=== PATIENT | female | born 1965 | race Caucasian/White ===

== ENCOUNTER 2019-10-31 07:08 | Outpatient (CLI) | payer BC, OTHER ==
[2019-11-01 11:19] LABS: SARS-CoV-2 MS2 Positive; SARS-CoV-2 N Gene Negative; SARS-CoV-2 S Gene Negative; SARS-CoV-2 orf1ab Negative
== END 2019-10-31 07:09 | disposition home or self-care (01) ==
LOC: LABBT 07:08
PROVIDERS: ATTEND Otolaryngology Plastic Surgery within the Head & Neck
DX: Z01.818 Encounter for other preprocedural examination (principal); Z11.59 Encounter for screening for other viral diseases; J32.9 Chronic sinusitis, unspecified; J30.9 Allergic rhinitis, unspecified; J34.3 Hypertrophy of nasal turbinates; J34.89 Other specified disorders of nose and nasal sinuses; J34.2 Deviated nasal septum; G47.33 Obstructive sleep apnea (adult) (pediatric); E66.9 Obesity, unspecified; R53.83 Other fatigue; R06.83 Snoring; G47.00 Insomnia, unspecified; R51 Headache; J35.3 Hypertrophy of tonsils with hypertrophy of adenoids; K13.79 Other lesions of oral mucosa; Z86.59 Personal history of other mental and behavioral disorders
CPT/HCPCS: 85014; 87635; 93005; 93010; U0003

== ENCOUNTER 2019-11-03 09:14 | Day surgery (SDC) | payer BC, OTHER ==
[2019-10-31 15:28] VITALS: BMI 41.1
[2019-11-03] MEDS ORDERED: AFRIN NASAL MIST 15 ML BOT ONE ×2 (09:27→09:45)
[2019-11-03] MEDS ORDERED: Lidocaine 1% w/Epinephrine 1:100K 20 ML VIAL ONE (09:45)
[2019-11-03] MEDS ORDERED: Ferric Subsulfate (ASTRINGYN) 8 ML VIAL ONE (09:45)
[2019-11-03] MEDS ORDERED: Bacitracin Zinc Ointment 30 gm TUBE ONE (09:45)
[2019-11-03] MEDS ORDERED: Fentanyl 100 MCG/2 ML VIAL ONE ×3 (09:46→14:08)
[2019-11-03] MEDS ORDERED: Midazolam HCl 2 mg/2 ml Vial ONE (09:46)
[2019-11-03] MEDS ORDERED: Glycopyrrolate 0.2 MG/ML 5 ML SYRINGE ONE (10:51)
[2019-11-03] MEDS ORDERED: Rocuronium Bromide 10 MG/ML (10ML VIAL) ONE (10:51)
[2019-11-03] MEDS ORDERED: PROPOFOL 200 MG/20 ML VIAL ONE (10:51)
[2019-11-03] MEDS ORDERED: Lidocaine 1% PF 5 ML VIAL ONE (10:51)
[2019-11-03] MEDS ORDERED: Ondansetron PF 4 MG/2 ML Vial ONE (10:51)
[2019-11-03] MEDS ORDERED: Dexamethasone 20 MG/5 ML VIAL ONE (10:51)
[2019-11-03] MEDS ORDERED: Succinylcholine Chloride 20 MG/ML 10 ml SYRINGE FS ONE (10:51)
[2019-11-03] MEDS ORDERED: Labetalol HCl 100 MG/20 ML VIAL ONE (10:51)
[2019-11-03] MEDS ORDERED: Morphine 2 MG/ML SYRINGE ONE ×3 (14:45→15:11)
[2019-11-03] MEDS ORDERED: Hydrocodone-Acetamin 15 ML UDCUP ONE (15:35)
--- NOTE | 2019-11-04 01:27 | OP ---
DATE OF PROCEDURE: 11/03/2019 PREOPERATIVE DIAGNOSES: 1. Chronic pansinusitis. 2. Bilateral nasal polyposis. 3. Nasal septal deviation. 4. Bilateral inferior turbinate hypertrophy. 5. Nasal obstruction. 6. Chronic adenotonsillitis. 7. Adenotonsillar hypertrophy. 8. Snoring. POSTOPERATIVE DIAGNOSES: 1. Chronic pansinusitis. 2. Bilateral nasal polyposis. 3. Nasal septal deviation. 4. Bilateral inferior turbinate hypertrophy. 5. Nasal obstruction. 6. Chronic adenotonsillitis. 7. Adenotonsillar hypertrophy. 8. Snoring. PROCEDURES PERFORMED: 1. Bilateral endoscopic sinus surgery, total ethmoidectomies with sphenoidotomies including removal of tissue bilaterally. 2. Bilateral endoscopic sinus surgery, maxillary antrostomy. 3. Bilateral endoscopic sinus surgery, frontal sinusotomy with removal of tissue. 4. Nasal septoplasty. 5. Bilateral inferior turbinate submucosal resection. 6. Tonsillectomy and adenoidectomy. 7. LandmarX image-guided stereotactic sinus procedure. ESTIMATED BLOOD LOSS: Less than 50 mL. COMPLICATIONS: None. ANESTHESIA: GETA. DESCRIPTION OF PROCEDURE: After consent was obtained, the patient was identified, brought to the operating room, and placed on the operating table in the supine position. General endotracheal anesthesia and intravenous access were obtained and we proceeded with positioning the patient for oropharyngeal surgery. Oropharyngeal exposure was obtained with a Joseph-Nicholas mouth gag after a head drape was placed and secured with a towel clip. The Joseph-Nicholas mouth gag was then suspended from the Vasquez tray and palatal elevation was achieved with a red rubber catheter. The right tonsil was addressed first. We used a curved Allis to grasp the tonsil and retract it medially as an anterior pillar incision was made. The retrotonsillar fascial plane was then established and blunt dissection was performed with the suction cautery. Blood vessels were anticipated, identified, and cauterized as they were encountered. Ultimately, dissection was carried to the posterior tonsillar pillar mucosa which was incised hemostatically, as well as the base of tongue connection. The tonsil was then passed off as a specimen and bleeding points within the tonsillar bed were cauterized under direct visualization. We subsequently turned our attention to the contralateral side, where using a similar technique, a near identical procedure was performed. Again, the tonsil was grasped and retracted medially with a curved Allis. The retrotonsillar fascial plane was established and while the anterior pillar was retracted medially, the hemostatic blunt dissection of the tonsil with a suction cautery was performed with blood vessels anticipated, identified, and cauterized as they were encountered. Again, dissection continued to the base of tongue and posterior tonsillar pillar mucosa which was incised in a hemostatic fashion. The tonsillar beds were then carefully inspected and bleeding points were identified and cauterized with a suction cautery. After this portion of the procedure, hemostasis was completely obtained. Under direct mirror visualization, we visualized the adenoid pad. Under direct mirror visualization, we removed the bulk of the adenoid tissue with the adenoid curette. We then packed the nasopharynx for an appropriate period of time with Cornell-Synephrine saturated tonsillar sponges. After a period of observation, we removed the pack. Under indirect mirror visualization, we obtained hemostasis and vaporization of residual adenoid tissue with electrocautery. The patient's oral cavity was copiously irrigated with iced saline and subsequently suctioned. After completion of the procedure, the nasal cavity and oropharynx were irrigated and suctioned as were the gastric contents. Then 1% lidocaine with 1:100,000 epinephrine was injected into the nasal septum as well as the inferior turbinates. The patient was prepped and draped in standard surgical fashion. The Afrin pledgets were then removed. A Wale incision was made on the left nasal septum. Submucoperichondrial dissection was performed bilaterally of the deviated portions of the septum, which included the maxillary crest and the crest deviation, as well as the mid portion of the septum. Cartilage and bony deviation were removed, leaving a generous caudal and dorsal strut. Any straight pieces of cartilage were then placed within the cartilage press, pressed, straightened, and then placed between the mucoperichondrial flaps, which were then closed using a 4-0 gut stitch. The inferior turbinates were then punctured with the submucosal Coblation machine, and 3 separate coblations were delivered to the anterior inferior portion of the inferior turbinates. Following this, the nasal cavity was irrigated. All debris was removed. An orogastric tube was placed. Gastric contents and Vasques splints were then placed in the nasal cavity and sutured with a 3-0 silk stitch. The LandmarX image-guided system was set up and was calibrated and was noted to be within 1 mm of axis. Following this, the 0-degree endoscope was advanced to the middle meatus, and the middle turbinates were gently medialized. A large right middle turbinate suly bullosa was encountered, and the lateral portion of the right middle turbinate suly bullosa was excised using a 0-degree microdebrider. Following this, the uncinate process was identified bilaterally and was anteriorly fractured using a ball-ended probe bilaterally. Following this, 0-degree microdebrider and the up-biting Blakesley forceps were used to remove the uncinate as well as expose the maxillary sinus ostia bilaterally. Next, a curved microdebrider along with the straight Blakesley forceps was used to widen the maxillary ostia bilaterally. Thick purulence was encountered throughout the ethmoidal cells and the maxillary sinus. Following this, the ethmoidal bulla was identified and was punctured on its medial and inferior aspect using the 0-degree microdebrider bilaterally. Purulent secretions along with nasal polyps were removed using the microdebrider of the ethmoidal cells. The ground lamella was identified and was punctured into the posterior ethmoidal cells. Working from posterior to anterior, the ethmoidal cells were opened in a mucosal-sparing technique. Using the AbraResto image-guided system, the anterior wall of the sphenoid sinus was identified bilaterally and was punctured using the 0-degree microdebrider bilaterally. The sphenoidotomies were widened in a medial and inferior direction, and polypoid tissue and nasal polyps were removed from the sphenoid sinuses bilaterally. Following this, a 45-degree endoscope was used to visualize the frontal sinus ostia, which was then widened using the image-guided 40-degree microdebrider blade. Following this, the nasal cavity was irrigated. NasoPore packing was placed within the middle meatus bilaterally, and Propel steroid stents were placed within the maxillary sinus ostia bilaterally and the frontal sinus ostia bilaterally. Vasques splints were then placed and secured. The patient tolerated the procedure well. Job ID: [id number]
== END 2019-11-03 17:10 | disposition home or self-care (01) ==
LOC: SDC 09:14
PROVIDERS: ATTEND Otolaryngology Plastic Surgery within the Head & Neck
PROC: 099Q8ZZ Drainage of Right Maxillary Sinus, Via Natural or Artificial Opening Endoscopic (ICD-10-PCS; principal; 2019-11-03)
PROC: 09TU8ZZ Resection of Right Ethmoid Sinus, Via Natural or Artificial Opening Endoscopic (ICD-10-PCS; principal; 2019-11-03)
PROC: 09BS8ZZ Excision of Right Frontal Sinus, Via Natural or Artificial Opening Endoscopic (ICD-10-PCS; principal; 2019-11-03)
PROC: 09TV8ZZ Resection of Left Ethmoid Sinus, Via Natural or Artificial Opening Endoscopic (ICD-10-PCS; principal; 2019-11-03)
PROC: 09SM0ZZ Reposition Nasal Septum, Open Approach (ICD-10-PCS; principal; 2019-11-03)
PROC: 8E09XBZ Computer Assisted Procedure of Head and Neck Region (ICD-10-PCS; principal; 2019-11-03)
PROC: 09BT8ZZ Excision of Left Frontal Sinus, Via Natural or Artificial Opening Endoscopic (ICD-10-PCS; principal; 2019-11-03)
PROC: 09BW8ZZ Excision of Right Sphenoid Sinus, Via Natural or Artificial Opening Endoscopic (ICD-10-PCS; principal; 2019-11-03)
PROC: 0CTPXZZ Resection of Tonsils, External Approach (ICD-10-PCS; principal; 2019-11-03)
PROC: 099R8ZZ Drainage of Left Maxillary Sinus, Via Natural or Artificial Opening Endoscopic (ICD-10-PCS; principal; 2019-11-03)
PROC: 09TL8ZZ Resection of Nasal Turbinate, Via Natural or Artificial Opening Endoscopic (ICD-10-PCS; principal; 2019-11-03)
PROC: 0CTQXZZ Resection of Adenoids, External Approach (ICD-10-PCS; principal; 2019-11-03)
PROC: 09BX8ZZ Excision of Left Sphenoid Sinus, Via Natural or Artificial Opening Endoscopic (ICD-10-PCS; principal; 2019-11-03)
DX: J32.4 Chronic pansinusitis (principal); J33.9 Nasal polyp, unspecified; J34.2 Deviated nasal septum; J34.3 Hypertrophy of nasal turbinates; J34.89 Other specified disorders of nose and nasal sinuses; J35.03 Chronic tonsillitis and adenoiditis; J30.9 Allergic rhinitis, unspecified; G47.33 Obstructive sleep apnea (adult) (pediatric); F32.9 Major depressive disorder, single episode, unspecified; F17.200 Nicotine dependence, unspecified, uncomplicated; G47.00 Insomnia, unspecified; K13.79 Other lesions of oral mucosa; E66.9 Obesity, unspecified; Z68.41 Body mass index [BMI] 40.0-44.9, adult; Z79.51 Long term (current) use of inhaled steroids; Z79.899 Other long term (current) drug therapy; Z88.0 Allergy status to penicillin; Z88.2 Allergy status to sulfonamides
CPT/HCPCS: 88304; C2625; J1100; J2001; J2250; J2270; J2405; J2704; J3010